=== PATIENT | male | born 1970 | race Caucasian/White ===

== ENCOUNTER → 2024-08-12 | Outpatient (REF) | payer BC ==
[~2024-08-12] MED LIST: DUEXIS 800-26.1 EACH PO; IOPAMIDOL 370 MG/ML 100 ML INFUS..BTL INJ ONE; MULTI-VITAMIN1 EACH PO; NITROGLYCERIN 0.4 MG SUBL ONE; SODIUM CHLORIDE 0.9% 100 ML ONE
[2024-08-12 10:19] LABS: CREATININE, SERUM 0.85 mg/dL (0.72-1.25)
== END ==
LOC: CT 09:23
PROVIDERS: ATTEND Internal Medicine Cardiovascular Disease
DX: I49.3 Ventricular premature depolarization (principal)
CPT/HCPCS: 36415; 75574; 82565; 84520; J7050; Q9967